=== PATIENT | male | born 1950 | race Caucasian/White ===

== ENCOUNTER 2021-02-10 13:08 | Observation (INO) ==
[2021-02-10] MEDS ORDERED: ENOXAPARIN 100 MG/ML SYRINGE SUBCUT STA (14:17)
[2021-02-10 14:25] LABS: Basophils % 0.8 % (0.0-0.8); Eosinophils # 0.1 10*3/uL (0.0-0.87); Eosinophils % 1.2 % (0.00-10.9); Hematocrit 46.1 VOL% (42.0-52.0); Hemoglobin 15.6 GM/DL (14.0-18.0); Immature Granulocytes % 0.4 %; Immature Granulocytes Absolute 0.02 #; Lymphocytes # 1.8 10*3/uL (1.4-4.0); Lymphocytes % 36.1 % (21.2-54.2); Mean Corpuscular HGB Conc 33.8 GM/DL (32-36); Mean Corpuscular Volume 90.4 FL (87-102); Monocytes % 6.1 % (1.7-12.7); Neutrophils % 55.4 % (38.7-73.9); Platelet Count 186 T/CUMM (130-400); Red Cell Distribution Width 12.9 % (9.3-17.3); White Blood Count 4.9 T/CUMM (4-12)
[2021-02-10 14:53] LABS: Albumin 4.3 G/DL (3.4-5.0); Bilirubin,Total 0.8 MG/DL (0.2-1.0); Calcium 9.4 MG/DL (8.5-10.1); Osmolality,Calculated 275.8 MOS/KG (273-304); Potassium 3.5 MMOL/L (3.5-5.1); Total Protein 7.7 G/DL (6.4-8.2)
[2021-02-10] MEDS ORDERED: ONDANSETRON 4 MG/2 ML VIAL IV PRN (15:44)
[2021-02-10] MEDS ORDERED: MAGNESIUM SULF RIDER 2 GM in PREMIX 1 EACH IV PRN (15:44)
[2021-02-10] MEDS ORDERED: guaiFENesin/DM ER 600-30 MG TABLET PO PRN (15:44)
[2021-02-10] MEDS ORDERED: ACETAMINOPHEN 325 MG TABLET PO PRN (15:44)
[2021-02-10] MEDS ORDERED: PROMETHAZINE 25 MG TABLET PO PRN (15:44)
[2021-02-10] MEDS ORDERED: POTASSIUM CHLORIDE 20 MEQ TABLET PO PRN (15:44)
[2021-02-10] MEDS ORDERED: hydrALAZINE 20 MG/1 ML VIAL IV PRN (15:44)
[2021-02-10] MEDS ORDERED: BISACODYL 5 MG TABLET PO PRN (15:44)
[2021-02-10] MEDS ORDERED: ALUMINUM/MAGNES/SIMETH MAX STR 30 ML UDCUP PO PRN (15:44)
[2021-02-10] MEDS ORDERED: diphenhydrAMINE CAP 25 MG CAPSULE PO PRN (15:44)
[2021-02-10] MEDS ORDERED: MAGNESIUM SULF RIDER 4 GM in PREMIX 1 EACH IV PRN (15:44)
[2021-02-10] MEDS ORDERED: FUROSEMIDE 40 MG TABLET PO PRN (15:46)
[2021-02-10] MEDS: ENOXAPARIN 40 MG/0.4 ML SYRINGE SUBCUT SCH (18:49)
[2021-02-10] MEDS: NITROGLYCERIN 2% OINT 1 INCH/GM PACK TOP SCH (18:49)
[2021-02-10] MEDS: MORPHINE 4 MG/1 ML VIAL IV PRN (20:16)
[2021-02-10] MEDS: RANOLAZINE 500 MG TABLET PO SCH (21:30)
[2021-02-10] MEDS: GABAPENTIN 300 MG CAPSULE PO SCH (23:56)
[2021-02-10] MEDS: carvediloL 6.25 MG TABLET PO SCH (23:56)
[2021-02-10] MEDS: CYCLOBENZAPRINE 10 MG TABLET PO SCH (23:56)
[2021-02-10] MEDS: ROSUVASTATIN 10 MG TABLET PO SCH (23:56)
[2021-02-10] MEDS: TAMSULOSIN 0.4 MG CAPSULE PO SCH (23:56)
[2021-02-11] MEDS: ZALEPLON 5 MG CAPSULE PO PRN ×2 (00:32→21:05)
[2021-02-11] MEDS: NITROGLYCERIN 2% OINT 1 INCH/GM PACK TOP SCH ×2 (00:36→06:29)
[2021-02-11 06:18] LABS: Basophils % 0.7 % (0.0-0.8); Eosinophils # 0.1 10*3/uL (0.0-0.87); Eosinophils % 3.1 % (0.00-10.9); Hematocrit 42.8 VOL% (42.0-52.0); Hemoglobin 13.9 GM/DL (14.0-18.0); Immature Granulocytes % 0.2 %; Immature Granulocytes Absolute 0.01 #; Lymphocytes # 1.7 10*3/uL (1.4-4.0); Lymphocytes % 41.5 % (21.2-54.2); Mean Corpuscular HGB Conc 32.5 GM/DL (32-36); Mean Corpuscular Volume 92.2 FL (87-102); Mean Platelet Volume 10.3 FL (9.6-12.0); Monocytes % 9.5 % (1.7-12.7); Platelet Count 156 T/CUMM (130-400); Red Blood Count 4.64 MC/CUMM (3.8-5.5); Red Cell Distribution Width 13.2 % (9.3-17.3); White Blood Count 4.2 T/CUMM (4-12)
[2021-02-11 07:00] LABS: Blood Urea Nitrogen 18 MG/DL (7-18); Calcium 8.9 MG/DL (8.5-10.1); Carbon Dioxide 29 MMOL/L (21-32); Estimated Glom Filtration Rate 66 ML/MIN; Glucose 92 MG/DL (74-106); HDL Cholesterol 45 MG/DL (40-60); Osmolality,Calculated 284.1 MOS/KG (273-304); Potassium 3.6 MMOL/L (3.5-5.1); Risk Ratio 2.98; Sodium 142 MMOL/L (136-145); Thyroid Stimulating Hormone 0.968 uIU/ml (0.358-3.74); Triglycerides 111 MG/DL (2-150); Troponin I < 0.015 NG/ML (0.00-0.045); VLDL CHOLESTEROL 22.2 MG/DL
[2021-02-11] MEDS: PANTOPRAZOLE 40 MG TABLET PO SCH (09:46)
[2021-02-11] MEDS: CLOPIDOGREL 75 MG TABLET PO SCH (09:47)
[2021-02-11] MEDS: CYCLOBENZAPRINE 10 MG TABLET PO SCH ×3 (09:47→20:54)
[2021-02-11] MEDS: MULTIVITAMIN (BEROCCA) TABLET PO SCH (09:47)
[2021-02-11] MEDS: carvediloL 6.25 MG TABLET PO SCH ×2 (09:47→20:54)
[2021-02-11] MEDS: ASPIRIN EC 81 MG TABLET PO SCH (09:48)
[2021-02-11] MEDS: RANOLAZINE 500 MG TABLET PO SCH ×2 (09:48→20:54)
[2021-02-11] MEDS: GABAPENTIN 300 MG CAPSULE PO SCH ×3 (09:48→20:54)
[2021-02-11] MEDS: ISOSORBIDE MONONITRATE 30 MG TABLET PO SCH (09:53)
[2021-02-11] MEDS ORDERED: NITROGLYCERIN SL 0.4 MG TABLET SL ONE (11:18)
[2021-02-11] MEDS ORDERED: MAGNESIUM SULF RIDER 2 GM in PREMIX 1 EACH IV ONE (12:09)
[2021-02-11] MEDS: NITROGLYCERIN SL 0.4 MG TABLET SL PRN (13:46)
[2021-02-11] MEDS: MORPHINE 4 MG/1 ML VIAL IV PRN (16:31)
[2021-02-11] MEDS: ENOXAPARIN 40 MG/0.4 ML SYRINGE SUBCUT SCH (16:32)
[2021-02-11] MEDS: ROSUVASTATIN 10 MG TABLET PO SCH (20:53)
[2021-02-11] MEDS: TAMSULOSIN 0.4 MG CAPSULE PO SCH (20:53)
[2021-02-11] MEDS: DOCUSATE SODIUM 100 MG CAPSULE PO PRN (20:58)
[2021-02-12] MEDS: NITROGLYCERIN SL 0.4 MG TABLET SL PRN ×2 (04:00→09:40)
[2021-02-12] MEDS: MORPHINE 4 MG/1 ML VIAL IV PRN (04:51)
[2021-02-12] MEDS: PANTOPRAZOLE 40 MG TABLET PO SCH (08:53)
[2021-02-12] MEDS: DOCUSATE SODIUM 100 MG CAPSULE PO PRN (08:53)
[2021-02-12] MEDS: GABAPENTIN 300 MG CAPSULE PO SCH ×2 (08:53→15:30)
[2021-02-12] MEDS: MULTIVITAMIN (BEROCCA) TABLET PO SCH (08:53)
[2021-02-12] MEDS: CLOPIDOGREL 75 MG TABLET PO SCH (08:53)
[2021-02-12] MEDS: ASPIRIN EC 81 MG TABLET PO SCH (08:54)
[2021-02-12] MEDS: CYCLOBENZAPRINE 10 MG TABLET PO SCH ×2 (08:54→15:30)
[2021-02-12] MEDS: carvediloL 6.25 MG TABLET PO SCH (08:54)
[2021-02-12] MEDS: RANOLAZINE 500 MG TABLET PO SCH (08:54)
[2021-02-12] MEDS: ISOSORBIDE MONONITRATE 30 MG TABLET PO SCH (08:55)
[2021-02-12 11:18] VITALS: BP 123/81
== END 2021-02-12 16:06 | disposition home or self-care (01) ==
LOC: N.ED 13:08 → N.EDINP 13:08 → N.TELES 21:48
PROVIDERS: ADMIT Internal Medicine Cardiovascular Disease; ATTEND Internal Medicine Cardiovascular Disease

== ENCOUNTER 2021-03-10 09:40 | Inpatient (IN) ==
[2021-03-10] MEDS ORDERED: PROMETHAZINE 25 MG TABLET PO PRN (09:43)
[2021-03-10] MEDS ORDERED: diphenhydrAMINE CAP 25 MG CAPSULE PO PRN (09:43)
[2021-03-10] MEDS ORDERED: ALUMINUM/MAGNES/SIMETH MAX STR 30 ML UDCUP PO PRN (09:43)
[2021-03-10] MEDS ORDERED: MORPHINE 4 MG/1 ML VIAL IV PRN (09:43)
[2021-03-10] MEDS ORDERED: guaiFENesin/DM ER 600-30 MG TABLET PO PRN (09:43)
[2021-03-10] MEDS ORDERED: DOCUSATE SODIUM 100 MG CAPSULE PO PRN (09:43)
[2021-03-10] MEDS ORDERED: ZALEPLON 5 MG CAPSULE PO PRN (09:43)
[2021-03-10] MEDS ORDERED: MAGNESIUM SULF RIDER 2 GM/50 ML PREMIX IV PRN (09:43)
[2021-03-10] MEDS ORDERED: MAGNESIUM SULF RIDER 4 GM/100 ML PREMIX IV PRN (09:43)
[2021-03-10] MEDS ORDERED: ONDANSETRON 4 MG/2 ML VIAL IV PRN (09:43)
[2021-03-10] MEDS ORDERED: POTASSIUM CHLORIDE 20 MEQ TABLET PO PRN (09:43)
[2021-03-10] MEDS ORDERED: DIAZEPAM 5 MG TABLET PO ONE (11:42)
[2021-03-10] MEDS ORDERED: diphenhydrAMINE CAP 25 MG CAPSULE PO ONE (11:42)
[2021-03-10] MEDS ORDERED: POTASSIUM CHLORIDE RIDER 10 MEQ/100 ML PREMIX IV PRN (11:42)
[2021-03-10 12:12] LABS: Basophils % 0.4 % (0.0-0.8); Eosinophils # 0.1 10*3/uL (0.0-0.87); Eosinophils % 2.1 % (0.00-10.9); Hematocrit 44.2 VOL% (42.0-52.0); Hemoglobin 15.2 GM/DL (14.0-18.0); Immature Granulocytes % 0.4 %; Immature Granulocytes Absolute 0.02 #; Lymphocytes # 1.8 10*3/uL (1.4-4.0); Lymphocytes % 33.7 % (21.2-54.2); Mean Corpuscular HGB Conc 34.4 GM/DL (32-36); Mean Corpuscular Volume 90.4 FL (87-102); Mean Platelet Volume 10.6 FL (9.6-12.0); Monocytes % 8.2 % (1.7-12.7); Neutrophils % 55.2 % (38.7-73.9); Platelet Count 141 T/CUMM (130-400); Red Blood Count 4.89 MC/CUMM (3.8-5.5); Red Cell Distribution Width 12.7 % (9.3-17.3); White Blood Count 5.2 T/CUMM (4-12)
[2021-03-10 12:31] LABS: Albumin 3.9 G/DL (3.4-5.0); Bilirubin,Total 0.5 MG/DL (0.2-1.0); Calcium 8.8 MG/DL (8.5-10.1); Osmolality,Calculated 279.5 MOS/KG (273-304); Total Protein 6.3 G/DL (6.4-8.2)
[2021-03-10] MEDS: hydrALAZINE 20 MG/1 ML VIAL IV PRN ×2 (12:52→19:02)
[2021-03-10] MEDS: SODIUM CHLORIDE 0.45% 1,000 ML IV SCH ×3 (12:52→22:27)
[2021-03-10] MEDS ORDERED: HEPARIN/NACL 0.9% 2 UNITS/ML 3,000 UNIT/1,500 ML BAG IV ONE (13:03)
[2021-03-10] MEDS ORDERED: LIDOCAINE 1% 20 ML VIAL ONE (13:03)
[2021-03-10] MEDS ORDERED: CYCLOBENZAPRINE 10 MG TABLET PO PRN (13:27)
[2021-03-10] MEDS ORDERED: NITROGLYCERIN SL 0.4 MG TABLET SL PRN (13:28)
[2021-03-10] MEDS ORDERED: FUROSEMIDE 40 MG TABLET PO PRN (13:28)
[2021-03-10] MEDS ORDERED: MIDAZOLAM 2 MG/2 ML VIAL ONE ×2 (13:32→13:51)
[2021-03-10] MEDS ORDERED: fentaNYL 100 MCG/2 ML VIAL ONE (13:32)
[2021-03-10] MEDS ORDERED: NITROGLYCERIN DRIP 50 MG/250 ML BOTTLE IV ONE (14:22)
[2021-03-10] MEDS ORDERED: HEPARIN 5,000 UNIT/1 ML VIAL ONE (14:22)
[2021-03-10] MEDS ORDERED: CLOPIDOGREL 75 MG TABLET ONE (14:26)
[2021-03-10] MEDS ORDERED: diphenhydrAMINE 50 MG/1 ML VIAL ONE (14:28)
[2021-03-10] MEDS: ALBUTEROL 2.5 MG/3 ML NEB RESP TX SCH ×2 (15:09→19:28)
[2021-03-10] MEDS: GABAPENTIN 300 MG CAPSULE PO SCH ×2 (15:52→20:17)
[2021-03-10] MEDS: ACETAMINOPHEN 325 MG TABLET PO PRN (17:57)
[2021-03-10] MEDS: carvediloL 6.25 MG TABLET PO SCH (20:17)
[2021-03-10] MEDS: RANOLAZINE 500 MG TABLET PO SCH (20:18)
[2021-03-10] MEDS ORDERED: SERTRALINE 25 MG TABLET PO SCH (21:00)
[2021-03-10] MEDS ORDERED: TAMSULOSIN 0.4 MG CAPSULE PO SCH (21:00)
[2021-03-10] MEDS ORDERED: ROSUVASTATIN 10 MG TABLET PO SCH (21:00)
[2021-03-11] MEDS: ALBUTEROL 2.5 MG/3 ML NEB RESP TX SCH ×2 (00:22→07:16)
[2021-03-11 05:55] LABS: Basophils % 0.5 % (0.0-0.8); Eosinophils # 0.2 10*3/uL (0.0-0.87); Eosinophils % 2.4 % (0.00-10.9); Hematocrit 44.5 VOL% (42.0-52.0); Hemoglobin 15.2 GM/DL (14.0-18.0); Immature Granulocytes % 0.5 %; Immature Granulocytes Absolute 0.03 #; Lymphocytes % 16.4 % (21.2-54.2); Mean Corpuscular HGB Conc 34.2 GM/DL (32-36); Mean Corpuscular Volume 89.7 FL (87-102); Mean Platelet Volume 11.1 FL (9.6-12.0); Neutrophils % 73.2 % (38.7-73.9); Platelet Count 99 T/CUMM (130-400); Red Blood Count 4.96 MC/CUMM (3.8-5.5); Red Cell Distribution Width 12.7 % (9.3-17.3); White Blood Count 6.2 T/CUMM (4-12)
[2021-03-11 06:16] LABS: Calcium 8.5 MG/DL (8.5-10.1); Potassium 3.9 MMOL/L (3.5-5.1)
[2021-03-11] MEDS: SODIUM CHLORIDE 0.45% 1,000 ML IV SCH (06:34)
[2021-03-11] MEDS: ACETAMINOPHEN 325 MG TABLET PO PRN (06:37)
[2021-03-11 07:34] LABS: Platelet Estimate Adequate
[2021-03-11] MEDS ORDERED: PANTOPRAZOLE 40 MG TABLET PO SCH ×2 (09:00)
[2021-03-11] MEDS ORDERED: lisinopriL 2.5 MG TABLET PO SCH (09:00)
[2021-03-11] MEDS ORDERED: ISOSORBIDE MONONITRATE 30 MG TABLET PO SCH (09:00)
[2021-03-11] MEDS ORDERED: CLOPIDOGREL 75 MG TABLET PO SCH (09:00)
[2021-03-11] MEDS ORDERED: ASPIRIN EC 81 MG TABLET PO SCH (09:00)
[2021-03-11] MEDS ORDERED: MULTIVITAMIN (BEROCCA) TABLET PO SCH (09:00)
[2021-03-11] MEDS: carvediloL 6.25 MG TABLET PO SCH (09:13)
[2021-03-11] MEDS: GABAPENTIN 300 MG CAPSULE PO SCH (09:13)
[2021-03-11] MEDS: RANOLAZINE 500 MG TABLET PO SCH (09:14)
== END 2021-03-11 11:00 | disposition home or self-care (01) | DRG 251 ==
LOC: N.ICU 11:44
PROVIDERS: ADMIT Internal Medicine Cardiovascular Disease; ATTEND Internal Medicine Cardiovascular Disease

== ENCOUNTER 2021-09-04 17:07 | Observation (INO) ==
[2021-09-04] MEDS ORDERED: ONDANSETRON 4 MG/2 ML VIAL IV STA (18:21)
[2021-09-04] MEDS ORDERED: NITROGLYCERIN 2% OINT 1 INCH/GM PACK TOP STA (18:21)
[2021-09-04] MEDS ORDERED: MORPHINE 2 MG/1 ML SYRINGE IV STA (18:21)
[2021-09-04] MEDS ORDERED: ASPIRIN 325 MG TABLET PO STA (18:21)
[2021-09-04 18:28] LABS: Basophils % 0.5 % (0.0-0.8); Eosinophils # 0.2 10*3/uL (0.0-0.87); Eosinophils % 2.3 % (0.00-10.9); Hematocrit 45.8 VOL% (42.0-52.0); Hemoglobin 15.3 GM/DL (14.0-18.0); Immature Granulocytes % 0.6 %; Immature Granulocytes Absolute 0.04 #; Lymphocytes # 2.6 10*3/uL (1.4-4.0); Lymphocytes % 39.7 % (21.2-54.2); Mean Corpuscular HGB Conc 33.4 GM/DL (32-36); Mean Corpuscular Volume 89.8 FL (87-102); Mean Platelet Volume 11.1 FL (9.6-12.0); Monocytes % 6.8 % (1.7-12.7); Neutrophils % 50.1 % (38.7-73.9); Platelet Count 187 T/CUMM (130-400); Red Cell Distribution Width 12.9 % (9.3-17.3); White Blood Count 6.6 T/CUMM (4-12)
[2021-09-04 18:35] LABS: PT Patient Result 11.4 SECS (10.5-12.0)
[2021-09-04 18:42] LABS: Albumin 3.8 G/DL (3.4-5.0); Bilirubin,Total 0.5 MG/DL (0.20-1.00); Calcium 8.8 MG/DL (8.5-10.1); Osmolality,Calculated 277.5 MOS/KG (273-304); Potassium 4.6 MMOL/L (3.5-5.1); Total Protein 6.7 G/DL (6.4-8.2)
[2021-09-04] MEDS ORDERED: MAGNESIUM SULF RIDER 2 GM/50 ML PREMIX IV STA (18:44)
[2021-09-04] MEDS ORDERED: DEXTROSE 50% 25 GM/50 ML VIAL IV PRN (19:15)
[2021-09-04] MEDS ORDERED: GLUCAGON 1 MG VIAL IM PRN (19:15)
[2021-09-04] MEDS ORDERED: ONDANSETRON 4 MG/2 ML VIAL IV PRN (19:15)
[2021-09-04] MEDS ORDERED: FAMOTIDINE 20 MG TABLET PO PRN (19:34)
[2021-09-04] MEDS ORDERED: NITROGLYCERIN SL 0.4 MG TABLET SL PRN (19:34)
[2021-09-04] MEDS ORDERED: DICYCLOMINE 10 MG CAPSULE PO PRN (19:34)
[2021-09-04] MEDS ORDERED: hydrALAZINE 20 MG/1 ML VIAL IV PRN (19:35)
[2021-09-04] MEDS ORDERED: ZALEPLON 5 MG CAPSULE PO PRN (21:00)
[2021-09-04] MEDS ORDERED: TAMSULOSIN 0.4 MG CAPSULE PO SCH (21:00)
[2021-09-04] MEDS ORDERED: ENOXAPARIN 40 MG/0.4 ML SYRINGE SUBCUT SCH (21:00)
[2021-09-04] MEDS ORDERED: INSULIN LISPRO 100 UNIT/ML SUBCUT SCH (21:00)
[2021-09-04 21:14] LABS: Bilirubin,Urine Negative (Negative); Blood, Urine Negative (Negative); Glucose,Urine (UA) Negative (Negative); Ketones,Urine Negative (Negative); Nitrite,Urine Negative (Negative); Protein,Urine Negative; RBC,Urine 1 /HPF (0-4); Squamous Epithelial Cell,Urine Occasional /HPF (0-10); Urine Appearance CLEAR (Clear); Urine Color Yellow (Yellow); Urine Urobilinogen < 2.0 EU/DL (0.2-1.0)
[2021-09-05] MEDS: GABAPENTIN 300 MG CAPSULE PO SCH ×3 (00:01→14:26)
[2021-09-05 01:12] LABS: Basophils % 0.5 % (0.0-0.8); Eosinophils # 0.1 10*3/uL (0.0-0.87); Eosinophils % 2.5 % (0.00-10.9); Hematocrit 44.1 VOL% (42.0-52.0); Hemoglobin 14.6 GM/DL (14.0-18.0); Immature Granulocytes % 0.4 %; Immature Granulocytes Absolute 0.02 #; Lymphocytes # 2.2 10*3/uL (1.4-4.0); Lymphocytes % 39.4 % (21.2-54.2); Mean Corpuscular HGB Conc 33.1 GM/DL (32-36); Mean Corpuscular Volume 90.9 FL (87-102); Mean Platelet Volume 10.7 FL (9.6-12.0); Neutrophils % 50.2 % (38.7-73.9); Platelet Count 154 T/CUMM (130-400); Red Blood Count 4.85 MC/CUMM (3.8-5.5); Red Cell Distribution Width 12.8 % (9.3-17.3); White Blood Count 5.6 T/CUMM (4-12)
[2021-09-05 01:43] LABS: Calcium 8.7 MG/DL (8.5-10.1); Osmolality,Calculated 277.7 MOS/KG (273-304); Potassium 3.6 MMOL/L (3.5-5.1); Risk Ratio 5.44; Thyroid Stimulating Hormone 2.41 uIU/ml (0.358-3.74)
[2021-09-05] MEDS: MORPHINE 2 MG/1 ML SYRINGE IV PRN ×3 (02:27→14:28)
[2021-09-05] MEDS ORDERED: METOPROLOL TARTRATE 100 MG TABLET PO SCH (09:00)
[2021-09-05] MEDS ORDERED: MULTIVITAMIN (CENTRUM) TABLET PO SCH (09:00)
[2021-09-05] MEDS ORDERED: CLOPIDOGREL 75 MG TABLET PO SCH (09:00)
[2021-09-05] MEDS ORDERED: VITAMIN B COMPLEX FOLIC ACID PO SCH (09:00)
[2021-09-05] MEDS ORDERED: PANTOPRAZOLE 40 MG TABLET PO SCH ×2 (09:00)
[2021-09-05] MEDS ORDERED: ASPIRIN EC 81 MG TABLET PO SCH (09:00)
[2021-09-05] MEDS ORDERED: cloNIDine 0.1 MG TABLET PO PRN (10:04)
[2021-09-05] MEDS ORDERED: cloNIDine 0.1 MG TABLET PO ONE (10:06)
[2021-09-05] MEDS ORDERED: lisinopriL 5 MG TABLET PO SCH (10:18)
[2021-09-05 16:14] VITALS: BP 148/88
[2021-09-05] MEDS ORDERED: ATORVASTATIN 40 MG TABLET PO SCH (21:00)
== END 2021-09-05 17:51 | disposition home or self-care (01) ==
LOC: N.EDINP 17:07 → N.ED 17:07 → N.TELES 18:59 → SUATTDRO 19:15 → N.TELES 20:37
PROVIDERS: ADMIT Internal Medicine; ATTEND Internal Medicine